=== PATIENT | male | born 1955 | race Caucasian/White ===

== ENCOUNTER 2016-03-03 10:14 | Emergency (ER) | payer SELFPAY ==
[~2016-03-03] VITALS: Ht 172.7 cm; Wt 76.6 kg
[~2016-03-03 10:14] MED LIST: ASPI81TA82 PO; ATOR40TA49 PO; LISI20 PO; METO25 PO
[2016-03-03 10:20] VITALS: BP 161/110; PULSE 100; RESP 17; TEMP 97.7; O2SAT 95
[2016-03-03 10:34] VITALS: O2SAT 96
[2016-03-03] MEDS: RESP: ALBUTEROL 2.5 MG/IPRATROPIUM 0.5 MG NEB (SCH) INH ×2 (10:38→10:39)
[2016-03-03] MEDS ORDERED: AZITHROMYCIN 250 MG TAB PO ONE (10:45)
[2016-03-03] MEDS ORDERED: methylPREDNISolone SOD SUCC 125 MG/2 ML VIAL IVP ONE (10:45)
[2016-03-03] MEDS ORDERED: SODIUM CHLORIDE 0.9% FLUSH 5 ML FLUSH IVF PRN (10:45)
[2016-03-03] MEDS ORDERED: METO25TA3 PO (10:48)
[2016-03-03] MEDS ORDERED: ATOR40TA16 PO (10:48)
[2016-03-03] MEDS ORDERED: ASPI1TAB69 PO (10:48)
[2016-03-03 10:49] LABS: AUTOMATED NEUTROPHIL # 4.8 TH/MM3 (1.8-7.7); BASOPHIL # 0.1 TH/MM3 (0-0.2); BASOPHIL % 0.8 % (0.0-2.0); EOSINOPHIL % 0.7 % (0.0-4.0); HEMATOCRIT 47.3 % (39.0-51.0); HEMO FLAGS DIFF FINAL; LYMPH % 21.5 % (9.0-44.0); LYMPHOCYTE # 1.5 TH/MM3 (1.0-4.8); MEAN CORPUSCULAR HGB CONC 33.7 % (32.0-36.0); MONO % 7.1 % (0.0-8.0); NEUT % 69.9 % (16.0-70.0); PLATELET COUNT 237 TH/MM3 (150-450); RED BLOOD COUNT 5.14 MIL/MM3 (4.50-5.90); RED CELL DISTRIBUTION WIDTH 12.3 % (11.6-17.2); WHITE BLOOD COUNT 6.9 TH/MM3 (4.0-11.0)
--- NOTE | 2016-03-03 10:56 | PD ---
HPI Chief Complaint: Respiratory Symptoms Time Seen by Provider: 10:25 Travel History International Travel<30 days: No Contact w/Intl Traveler<30days: No Traveled to known affect area: No History of Present Illness HPI Is a 60-year-old man with a history of extensive tobacco use but no history of lung disease presents to the emergency department with about a week's worth of cough productive of thick phlegm, night sweats and fevers, difficulty breathing , and some occasional sharp chest pain. Symptoms been steadily worsening over the past 5 days or so and so he presents to the emergency department today. His a history of CAD and had a CABG done about 2 years ago. He is not really had trouble with respiratory infections in the past. No other complaints. History Past Medical History Narrative Medical CAD, CABG March 2014 Hypertension hyperlipidemia Tobacco use Social History Alcohol Use: No Tobacco Use: Yes (8-9 CIGS/DAILY) Allergies-Medications (Allergen,Severity, Reaction): Coded Allergies: Shellfish (Verified Allergy, Intermediate, Hives, 03/03/16) Reported Meds & Prescriptions Reported Meds & Active Scripts Active Reported Metoprolol Tartrate 25 Mg Tab 12.5 Mg PO BID Atorvastatin (Atorvastatin Calcium) 40 Mg Tab 40 Mg PO HS Aspirin 81 Mg Tabdr 81 Mg PO DAILY Review of Systems Except as stated in HPI: all other systems reviewed are Neg Physical Exam Narrative GENERAL: 60 year-old woman, moderate respiratory distress, audible wheezing. SKIN: Warm and dry. NECK: Trachea midline. No JVD. CARDIOVASCULAR: Regular rate and rhythm. No murmur appreciated. RESPIRATORY: Coarse breath sounds with marked diffuse wheezing, good air movement. Mild respiratory distress. GASTROINTESTINAL: Abdomen soft, non-tender, nondistended. Hepatic and splenic margins not palpable. MUSCULOSKELETAL: No obvious deformities. No edema. NEUROLOGICAL: Awake and alert. No obvious cranial nerve deficits. Motor grossly within normal limits. Normal speech. PSYCHIATRIC: Appropriate mood and affect; insight and judgment normal. Data Data Last Documented VS Vital Signs Date Time Temp Pulse Resp B/P Pulse Ox O2 Delivery O2 Flow Rate FiO2 03/03/16 10:50 97 22 96 Room Air 03/03/16 10:20 97.7 161/110 Orders Complete Blood Count With Diff (03/03/16 10:33) Comprehensive Metabolic Panel (03/03/16 10:33) Troponin I (03/03/16 10:33) Influenzae A/B Antigen (03/03/16 10:33) Iv Access Insert/Monitor (03/03/16 10:33) Electrocardiogram (03/03/16 10:33) Ecg Monitoring (03/03/16 10:33) Oximetry (03/03/16 10:33) Oxygen Administration (03/03/16 10:33) Chest, Pa & Lat (03/03/16 10:33) Sodium Chloride 0.9% Flush (Ns Flush) (03/03/16 10:45) Methylprednisolone So Succ Inj (Solumedr (03/03/16 10:45) Albuterol-Ipratropium Neb (Duoneb Neb) (03/03/16 10:45) Azithromycin (Zithromax) (03/03/16 10:45) Lactic Acid Sepsis Protocol (03/03/16 10:41) Albuterol Hfa Inh (Proair Hfa Inh) (03/03/16 11:45) Spacer / Device For Mdi (Spacer / Device (03/03/16 11:45) Labs Laboratory Tests Test 03/03/16 03/03/16 10:30 10:36 White Blood Count 6.9 TH/MM3 Red Blood Count 5.14 MIL/MM3 Hemoglobin 16.0 GM/DL Hematocrit 47.3 % Mean Corpuscular Volume 92.0 FL Mean Corpuscular Hemoglobin 31.0 PG Mean Corpuscular Hemoglobin 33.7 % Concent Red Cell Distribution Width 12.3 % Platelet Count 237 TH/MM3 Mean Platelet Volume 8.0 FL Neutrophils (%) (Auto) 69.9 % Lymphocytes (%) (Auto) 21.5 % Monocytes (%) (Auto) 7.1 % Eosinophils (%) (Auto) 0.7 % Basophils (%) (Auto) 0.8 % Neutrophils # (Auto) 4.8 TH/MM3 Lymphocytes # (Auto) 1.5 TH/MM3 Monocytes # (Auto) 0.5 TH/MM3 Eosinophils # (Auto) 0.0 TH/MM3 Basophils # (Auto) 0.1 TH/MM3 CBC Comment DIFF FINAL Differential Comment Sodium Level 139 MEQ/L Potassium Level 4.1 MEQ/L Chloride Level 102 MEQ/L Carbon Dioxide Level 27.7 MEQ/L Anion Gap 9 MEQ/L Blood Urea Nitrogen 14 MG/DL Creatinine 1.00 MG/DL Estimat Glomerular Filtration 76 ML/MIN Rate Random Glucose 115 MG/DL Calcium Level 9.2 MG/DL Total Bilirubin 0.8 MG/DL Aspartate Amino Transf 16 U/L (AST/SGOT) Alanine Aminotransferase 30 U/L (ALT/SGPT) Alkaline Phosphatase 68 U/L Troponin I LESS THAN 0.02 NG/ML Total Protein 8.3 GM/DL Albumin 3.7 GM/DL Lactic Acid Level 1.6 mmol/L MDM Medical Decision Making Medical Screen Exam Complete: Yes Emergency Medical Condition: Yes Interpretation(s) My review of EKG: Normal sinus rhythm at a rate of 92, leftward axis, no acute ischemia. My review of chest x-ray: Hyperinflation consistent with COPD, previous CABG, no acute infiltrate. LABS: CBC unremarkable CMP unremarkable Lactate normal Troponin negative Influenza negative Differential Diagnosis New onset COPD, bronchitis, pneumonia, influenza, ACS, CHF, PE, other Narrative Course Medical decision making INITIAL: 60-year-old male presents emergency department wheezing, productive cough, subjective fevers, likely new onset COPD with bronchitis or pneumonia. We'll check labs, EKG, bronchodilators, steroids, reassess. FINAL: Patient with likely undiagnosed COPD here with exacerbation. Oxygen saturations are around the mid to low 90s. He still fairly wheezy but states he feels improved after the treatments. We cannulated the patient emergency department he stayed in the low 90s while walking, felt a little bit lightheaded. He apparently is been having trouble with his equilibrium for some time. I think he will continue to improve on the steroids. We discussed giving for observation in the hospital versus trial of outpatient therapy. Patient doesn't have much reserve if she were to get any worse. Patient would strongly prefer to be treated as an outpatient if possible. I think this is reasonable Y do have some reservations. I discussed these reservations with the patient, and they agree to return immediately if he has any worsening in his symptoms. His has COPD and has a pulse oximeter at home. She will bring him back if he is running lower than 90%, has any worsening trouble breathing, or develops any new symptoms. Diagnosis Primary Impression: COPD with exacerbation Additional Instructions: Take medications as prescribed. Use spacer as instructed. Follow-up with your primary doctor in the next one to 2 days. Return to the emergency department for any trouble breathing, oxygen saturations lower than 90%, chest pain, lightheadedness, or any other new or worsening symptoms. Scripts Prednisone (Deltasone)20 Mg Tab40 Mg PO DAILY 10 Days Prov:Joseph Mcgill MD 03/03/16 Azithromycin 250 Mg [id number] Mg PO DAILY 4 Days Prov:Joseph Mcgill MD 03/03/16 Albuterol 18 GM Inh (Ventolin Hfa 18 GM Inh)90 Mcg/Act Aer2 Puff INH Q4-6H PRN ( SHORTNESS OF BREATH) #1 INHALER Prov:Joseph Mcgill MD 03/03/16 Disposition: 01 DISCHARGE HOME Condition: Stable Joseph Mcgill MD Mar 03, 2016 10:56
[2016-03-03 10:59] LABS: CHLORIDE 102 MEQ/L (98-107); POTASSIUM 4.1 MEQ/L (3.5-5.1); SODIUM (NA) 139 MEQ/L (136-145)
[2016-03-03 11:04] LABS: ANION GAP 9 MEQ/L (5-15); BICARBONATE 27.7 MEQ/L (21.0-32.0); BLOOD UREA NITROGEN 14 MG/DL (7-18)
[2016-03-03 11:07] LABS: ALT (GPT) 30 U/L (12-78); AST (GOT) 16 U/L (15-37); GLOMERULAR FILTRATION RATE 76 ML/MIN (>89)
[2016-03-03 11:09] LABS: TOTAL BILIRUBIN ADULT 0.8 MG/DL (0.2-1.0)
[2016-03-03 11:10] LABS: ALKALINE PHOSPHATASE 68 U/L (45-117)
--- NOTE | 2016-03-03 11:43 | RADHPO ---
EXAM DATE/TIME: 03/03/2016 11:04 [facility] COMPARISON: CHEST PA & LAT, December 20, 2014, 10:52. INDICATIONS : Short of breath. MEDICAL HISTORY : Cardiovascular disease. smoker SURGICAL HISTORY : CABG. ENCOUNTER: Initial ACUITY: 1 week PAIN SCORE: 0/10 LOCATION: Bilateral chest FINDINGS: The patient is post median sternotomy. The heart is normal in size. There moderate COPD changes. The visualized bony structures demonstrate degenerative change but are otherwise intact. The exam is stab le compared to previous. CONCLUSION: 1. COPD changes. No acute abnormality. Alexander Espinosa MD on March 03, 2016 at 11:39 Board Certified Radiologist. This report was verified electronically.
[2016-03-03] MEDS ORDERED: ALBUTEROL SULFATE 90 MCG/ACT HFA 8 GM INHALER INH ONE (11:45)
[2016-03-03] MEDS ORDERED: SPACER/DEVICE FOR MDI INH SCH (11:45)
[2016-03-03] MEDS ORDERED: VENTAER INH (11:48)
[2016-03-03] MEDS ORDERED: PRED-503 PO (11:48)
[2016-03-03] MEDS ORDERED: AZIT250T3 PO (11:48)
[2016-03-03 11:54] VITALS: BP 155/85
--- NOTE | 2016-03-03 16:57 | EKG ---
Date Performed: 03/03/2016 Time Performed: 10:53:26 PTAGE: 60 years EKG: Sinus rhythm Left axis deviation Abnormal ECG COMPARED TO PRIOR ELECTROCARDIOGRAM, Rate has increased. PREVIOUS TRACING : 12/20/2014 07.40 DOCTOR: Nilton Wilcox Interpretating Date/Time 03/03/2016 16:55:32
== END 2016-03-03 12:19 | disposition home or self-care (01) ==
LOC: PHED 10:14
DX: J44.1 Chronic obstructive pulmonary disease with (acute) exacerbation (principal); R61 Generalized hyperhidrosis; I25.10 Atherosclerotic heart disease of native coronary artery without angina pectoris; Z95.1 Presence of aortocoronary bypass graft; I10 Essential (primary) hypertension; E78.5 Hyperlipidemia, unspecified; Z72.0 Tobacco use; R94.31 Abnormal electrocardiogram [ECG] [EKG]
CPT/HCPCS: 71020; 80053; 83605; 84484; 85025; 87804; 93005; 94640; 94664; 96374; 99285; J2930